=== PATIENT | male | born 1975 | race Caucasian/White ===

== ENCOUNTER 2017-06-13 19:32 | Emergency (ER) | payer MEDICARE, OTHER ==
[2017-06-13] MEDS ORDERED: Sodium Chloride 0.9% 1,000 ML IV ONE (19:41)
[2017-06-13] MEDS ORDERED: Sodium Chloride 0.9% 10 ML Syringe FLUSH PRN (19:41)
[2017-06-13] MEDS ORDERED: Ondansetron 4 MG/2 ML SDV IVPUSH ONE (19:41)
[2017-06-13] MEDS ORDERED: Sodium Chloride 0.9% 2.5 ML Syringe FLUSH PRN (19:41)
--- NOTE | 2017-06-13 19:43 | EDM.PDOC ---
ED HPI GENERAL MEDICAL PROBLEM - General Chief Complaint: Fever Stated Complaint: FEVER Time Seen by Provider: 06/13/17 19:37 - History of Present Illness INITIAL COMMENTS - FREE TEXT/NARRATIVE: HISTORY AND PHYSICAL: History of present illness: Patient 41-year-old white male history diabetes who presents with concern of vomiting and fever states he had a temperature of 102 at home and vomited 3 times a night he denies abdominal pain chest pain cough or other concern. Upon arrival is temperature is 90.9 he states he did take Tylenol at 6:00 Review of systems: As per history of present illness and below otherwise all systems reviewed and negative. Past medical history: As per history of present illness and as reviewed below otherwise noncontributory. Surgical history: As per history of present illness and as reviewed below otherwise noncontributory. Social history: No reported history of drug or alcohol abuse. Family history: As per history of present illness and as reviewed below otherwise noncontributory. Physical exam: HEENT: Atraumatic, normocephalic, pupils reactive, negative for conjunctival pallor or scleral icterus, mucous membranes moist, throat clear, neck supple, nontender, trachea midline. Lungs: Clear to auscultation, breath sounds equal bilaterally, chest nontender. Heart: S1S2, regular, negative for clicks, rubs, or JVD. Abdomen: Soft, nondistended, nontender. Negative for masses or hepatosplenomegaly. Negative for costovertebral tenderness. Pelvis: Stable nontender. Genitourinary: Deferred. Rectal: Deferred. Extremities: Atraumatic, negative for cords or calf pain. Neurovascular unremarkable. Neuro: Awake, alert, oriented. Cranial nerves II through XII unremarkable. Cerebellum unremarkable. Motor and sensory unremarkable throughout. Exam nonfocal. Diagnostics: CBC CMP chest x-ray UA Therapeutics: Normal saline 1 L bolus Zofran 4 mg IV Impression: #1 history of fever #2 vomiting #3 history diabetes Definitive disposition and diagnosis as appropriate pending reevaluation and review of above. - Related Data Allergies Allergy/AdvReac Type Severity Reaction Status Date / Time codeine AdvReac Nose Bleeds Verified 06/13/17 19:37 Home Meds: Home Meds Aspirin [Adult Low Dose Aspirin EC] 81 mg PO QID 03/26/14 [History] Budesonide/Formoterol [Symbicort 160-4.5 Mcg Inhaler] 1 puff INH BID 03/26/14 [ History] Lansoprazole [Prevacid] 15 mg PO DAILY 03/26/14 [History] carBAMazepine [Tegretol XR] 200 mg PO BID 03/26/14 [History] Past Medical History Neurological History: Reports: Seizure Social & Family History - Tobacco Use Smoking Status *Q: Never Smoker - Recreational Drug Use Recreational Drug Use: No ED ROS GENERAL - Review of Systems Review Of Systems: ROS reveals no pertinent complaints other than HPI. ED EXAM, GENERAL - Physical Exam Exam: See Below Course - Vital Signs Last Recorded V/S: Last Vital Signs Temp 38.2 C H 06/13/17 21:50 Pulse 106 H 06/13/17 21:50 Resp 22 H 06/13/17 21:50 BP 112/60 06/13/17 21:50 Pulse Ox 90 L 06/13/17 21:50 - Orders/Labs/Meds Orders: Active Orders 24 hr Category Date Time Status Chest 2V [CR] Stat Exams 06/13/17 19:41 Taken Sodium Chloride 0.9% [Saline Flush] Med 06/13/17 19:41 Active 10 ml FLUSH ASDIRECTED PRN Sodium Chloride 0.9% [Saline Flush] Med 06/13/17 19:41 Active 2.5 ml FLUSH ASDIRECTED PRN Saline Lock Insert [OM.PC] Stat Oth 06/13/17 19:40 Ordered Medication Orders Sodium Chloride (Saline Flush) 10 ml FLUSH ASDIRECTED PRN PRN Reason: Keep Vein Open Last Admin: 06/13/17 20:02 Dose: 10 ml Sodium Chloride (Saline Flush) 2.5 ml FLUSH ASDIRECTED PRN PRN Reason: Keep Vein Open Last Admin: 06/13/17 20:02 Dose: 2.5 ml Labs: Laboratory Tests 06/13/17 06/13/17 06/13/17 Range/Units 19:56 19:56 21:05 WBC 10.05 (4.0-11.0) K/uL RBC 4.24 L (4.50-5.90) M/uL Hgb 13.4 (13.0-17.0) g/dL Hct 41.9 (38.0-50.0) % MCV 98.8 H (80.0-98.0) fL MCH 31.6 (27.0-32.0) pg MCHC 32.0 (31.0-37.0) g/dL RDW Std Deviation 49.7 (28.0-62.0) fl RDW Coeff of Janina 14 (11.0-15.0) % Plt Count 149 L (150-400) K/uL MPV 10.60 (7.40-12.00) fL Neut % (Auto) 81.7 H (48.0-80.0) % Lymph % (Auto) 9.2 L (16.0-40.0) % [place] % (Auto) 9.0 (0.0-15.0) % Eos % (Auto) 0.0 (0.0-7.0) % Baso % (Auto) 0.1 (0.0-1.5) % Neut # (Auto) 8.2 H (1.4-5.7) K/uL Lymph # (Auto) 0.9 (0.6-2.4) K/uL [place] # (Auto) 0.9 H (0.0-0.8) K/uL Eos # (Auto) 0.0 (0.0-0.7) K/uL Baso # (Auto) 0.0 (0.0-0.1) K/uL Nucleated RBC % 0.0 /100WBC Nucleated RBCs # 0 K/uL Sodium 139 (136-146) mmol/L Potassium 4.4 (3.5-5.1) mmol/L Chloride 104 (98-110) mmol/L Carbon Dioxide 24 (21-31) mmol/L BUN 13 (6.0-23.0) mg/dL Creatinine 1.2 (0.6-1.5) mg/dL Est Cr Clr Drug Dosing 97.45 mL/min Estimated GFR (MDRD) > 60.0 ml/min Glucose 151 H (60-110) mg/dL Calcium 9.0 (8.8-10.8) mg/dL Total Bilirubin 0.8 (0.1-1.5) mg/dL AST 23 (5-40) IU/L ALT 18 (8-54) IU/L Alkaline Phosphatase 89 (40-150) Total Protein 7.7 (6.0-8.0) g/dL Albumin 3.9 (3.5-5.0) g/dL Globulin 3.8 H (2.0-3.5) g/dL Albumin/Globulin Ratio 1.0 L (1.3-2.8) Urine Color YELLOW Urine Appearance CLEAR Urine pH 7.5 (5.0-8.0) Ur Specific [place] 1.015 (1.001-1.035) Urine Protein 30 (NEGATIVE) mg/dL Urine Glucose (UA) NEGATIVE (NEGATIVE) mg/dL Urine Ketones TRACE H (NEGATIVE) mg/dL Urine Occult Blood NEGATIVE (NEGATIVE) Urine Nitrite NEGATIVE (NEGATIVE) Urine Bilirubin SMALL H (NEGATIVE) Urine Ictotest NEGATIVE Urine Urobilinogen 1.0 (<2.0) EU/dL Ur Leukocyte Esterase NEGATIVE (NEGATIVE) Urine RBC 0-1 (0-2/HPF) Urine WBC 3-5 (0-5/HPF) Ur Epithelial Cells MODERATE (NONE-FEW) Urine Bacteria FEW (NEGATIVE) Meds: Medications Generic Name Dose Route Start Last Admin Trade Name Yari PRN Reason Stop Dose Admin Sodium Chloride 10 ml 06/13/17 19:41 06/13/17 20:02 Saline Flush FLUSH 10 ml ASDIRECTED PRN Administration Keep Vein Open Sodium Chloride 2.5 ml 06/13/17 19:41 06/13/17 20:02 Saline Flush FLUSH 2.5 ml ASDIRECTED PRN Administration Keep Vein Open Discontinued Medications Generic Name Dose Route Start Last Admin Trade Name Yari PRN Reason Stop Dose Admin Sodium Chloride 1,000 mls @ 999 mls/hr 06/13/17 19:41 06/13/17 20:01 Normal Saline IV 06/13/17 20:41 999 mls/hr STAT ONE Administration Ondansetron HCl 4 mg 06/13/17 19:41 06/13/17 20:01 Zofran IVPUSH 06/13/17 19:42 4 mg ONETIME ONE Administration Departure - Departure Time of Disposition: 21:56 Disposition: Home, Self-Care 01 Condition: Good Clinical Impression: Viral syndrome - Discharge Information Forms: ED Department Discharge Additional Instructions: The following information is given to patients seen in the emergency department who are being discharged to home. This information is to outline your options for follow-up care. We provide all patients seen in our emergency department with a follow-up referral. The need for follow-up, as well as the timing and circumstances, are variable depending upon the specifics of your emergency department visit. If you don't have a primary care physician on staff, we will provide you with a referral. We always advise you to contact your personal physician following an emergency department visit to inform them of the circumstance of the visit and for follow-up with them and/or the need for any referrals to a consulting specialist. The emergency department will also refer you to a specialist when appropriate. This referral assures that you have the opportunity for followup care with a specialist. All of these measure are taken in an effort to provide you with optimal care, which includes your followup. Under all circumstances we always encourage you to contact your private physician who remains a resource for coordinating your care. When calling for followup care, please make the office aware that this follow-up is from your recent emergency room visit. If for any reason you are refused follow-up, please contact the [facility] emergency department at and asked to speak to the emergency department charge nurse. Push fluids clear liquids as directed continue current medications return as needed as discussed Motrin/Tylenol as directed - My Orders Last 24 Hours: My Active Orders 06/13/17 19:40 Saline Lock Insert [OM.PC] Stat 06/13/17 19:41 Chest 2V [CR] Stat Sodium Chloride 0.9% [Saline Flush] 10 ml FLUSH ASDIRECTED PRN Sodium Chloride 0.9% [Saline Flush] 2.5 ml FLUSH ASDIRECTED PRN - Assessment/Plan Last 24 Hours: My Active Orders 06/13/17 19:40 Saline Lock Insert [OM.PC] Stat 06/13/17 19:41 Chest 2V [CR] Stat Sodium Chloride 0.9% [Saline Flush] 10 ml FLUSH ASDIRECTED PRN Sodium Chloride 0.9% [Saline Flush] 2.5 ml FLUSH ASDIRECTED PRN
[2017-06-13 20:43] LABS: CHLORIDE,CL 104 mmol/L (98-110); SODIUM,NA 139 mmol/L (136-146)
[2017-06-13] MEDS ORDERED: cefTRIAXone 1,000 MG VIAL IVPUSH ONE (22:03)
[2017-06-13] MEDS ORDERED: cefTRIAXone 1 GM in Premix Bag 1 BAG IV ONE (22:09)
[2017-06-13 22:50] VITALS: BP 104/51
--- NOTE | 2017-06-14 11:51 | CR ---
EXAM DATE: 06/13/17 PATIENT'S AGE: 41 Patient: LIZBETH MAK Facility: [place], [place] Site . Site : [id number] Study: XRay Chest [id number]/18/2017 9:11:55 PM Ordering Physician: Marilyn Mancera Final Report: CHEST 2 VIEWS INDICATION: Short of breath. IMPRESSION: Normal heart size and vascular pattern. Lungs are clear. No pneumothorax or pleural abnormality. Dictated by Pieter Walsh MD @ Jun 13 2017 9:35PM (Electronic Signature) Report Signed by Proxy. [facility] CENTERBatsheva
== END 2017-06-13 22:50 | disposition home or self-care (01) ==
LOC: MW.ED 19:32
DX: B34.9 Viral infection, unspecified (principal); E11.9 Type 2 diabetes mellitus without complications; Z88.5 Allergy status to narcotic agent; Z79.82 Long term (current) use of aspirin; Z79.899 Other long term (current) drug therapy
CPT/HCPCS: 36415; 71020; 80053; 81001; 85025; 96361; 96365; 96375; 99284; J0696; J2405; J7040

== ENCOUNTER 2017-08-09 07:51 | Day surgery (SDC) | payer MEDICARE, OTHER ==
[~2017-08-09 07:51] MED LIST: Lactated Ringers 1,000 ML IV SCH
--- NOTE | 2017-08-09 08:48 | PCM.PREANE ---
Preanesthetic Assessment - Anesthesia/Transfusion/Family Hx Anesthesia History: No Prior Anesthesia Family History of Anesthesia Reaction: No Transfusion History: No Prior Transfusion(s) - Review of Systems General: No Symptoms Pulmonary: No Symptoms Cardiovascular: No Symptoms Neurological: No Symptoms Other: Reports: None - Physical Assessment NPO Status Date: 08/08/17 O2 Sat by Pulse Oximetry: 97 Respiratory Rate: 16 Vital Signs: Last Vital Signs Temp 36.2 C 08/09/17 08:13 Pulse 71 08/09/17 08:13 Resp 16 08/09/17 08:13 BP 116/70 08/09/17 08:13 Pulse Ox 97 08/09/17 08:13 Height: 1.8 m Weight: 174.633 kg ASA Class: 3 Mental Status: Alert & Oriented x3 Airway Class: Mallampati = 2 Dentition: Reports: Normal Dentition ROM/Head Extension: Full Lungs: Clear to Auscultation, Normal Respiratory Effort Cardiovascular: Regular Rate, Regular Rhythm - Allergies Allergies/Adverse Reactions: Allergies Allergy/AdvReac Type Severity Reaction Status Date / Time codeine AdvReac Nose Bleeds Verified 08/03/17 15:41 - Anesthesia Plan Pre-Op Medication Ordered: None - Acknowledgements Anesthesia Type Planned: MAC Pt an Appropriate Candidate for the Planned Anesthesia: Yes Alternatives and Risks of Anesthesia Discussed w Pt/Guardian: Yes Pt/Guardian Understands and Agrees with Anesthesia Plan: Yes Additional Comments: PMH: super morbid oesity, DM2, HTN, HLD, seizure disorder (last seizure > 2 yr ago) PreAnesthesia Questionnaire Other HEENT History: has upper and lower dentures Cardiovascular History: Reports: High Cholesterol, Hypertension Respiratory History: Reports: Asthma Gastrointestinal History: Reports: GERD Neurological History: Reports: Brain Injury, Concussion, Seizure Other Neuro History: las seizure was "many years ago" Endocrine/Metabolic History: Reports: Diabetes, Type II, Obesity/BMI 30+ Dermatologic History: Reports: Other (See Below) Other Dermatologic History: states has had "blood clots" in his legs, did not take anticoagulants (uses cream) - Infectious Disease History Infectious Disease History: Reports: Chicken Pox - SUBSTANCE USE Smoking Status *Q: Never Smoker Second Hand Smoke Exposure: No Recreational Drug Use History: No - HOME MEDS Home Medications: Home Meds Budesonide/Formoterol [Symbicort 160-4.5 Mcg Inhaler] 1 puff INH BID 03/26/14 [ History] carBAMazepine [Tegretol XR] 200 mg PO BID 03/26/14 [History] Lisinopril 10 mg PO DAILY 06/13/17 [History] atorvaSTATin [Lipitor] 10 mg PO BEDTIME 06/13/17 [History] metFORMIN [Glucophage XR] 500 mg PO BIDMEALS 06/13/17 [History] Silver Sulfadiazine [Silvadene 1% Cream 20 GM] 1 dose TOP ASDIRECTED PRN [History] - CURRENT (IN HOUSE) MEDS Current Meds: Current Medications Lactated Ringer's (Ringers, Lactated) 1,000 mls @ 125 mls/hr IV ASDIRECTED SANDY Last Admin: 08/09/17 08:15 Dose: 125 mls/hr
[2017-08-09] MEDS ORDERED: Lidocaine 2% 5 ML SDV ONE (09:33)
[2017-08-09] MEDS ORDERED: Propofol 200 MG/20 ML SDV ONE ×2 (09:34→10:15)
[2017-08-09] MEDS ORDERED: Midazolam 1 MG/ML 2 ML SDV ONE ×2 (09:34→10:05)
--- NOTE | 2017-08-09 10:00 | PCM.OPNOTE ---
- General Post-Op/Procedure Note Date of Surgery/Procedure: 08/09/17 Operative Procedure(s): egd w bx Findings: see dict [id number] Pre Op Diagnosis: hx of hematemisis Anesthesia Technique: Moderate Sedation Primary Surgeon: Alonso Figueroa Pathology: egd bx Complications: None Condition: Good
[2017-08-09] MEDS ORDERED: fentaNYL 100 MCG/2 ML SDV ONE (10:05)
[2017-08-09 10:35] VITALS: BP 109/63
--- NOTE | 2017-08-09 10:51 | PCM48HPAN ---
Post Anesthesia Note - EVALUATION WITHIN 48HRS OF ANESTHETIC Vital Signs in Normal Range: Yes Patient Participated in Evaluation: Yes Respiratory Function Stable: Yes Airway Patent: Yes Cardiovascular Function Stable: Yes Hydration Status Stable: Yes Pain Control Satisfactory: Yes Nausea and Vomiting Control Satisfactory: Yes Mental Status Recovered: Yes
--- NOTE | 2017-08-09 10:51 | PCM.POSTAN ---
POST ANESTHESIA ASSESSMENT - MENTAL STATUS Mental Status: Alert, Oriented - RESPIRATORY Respiratory Status: Respiratory Rate WNL, Airway Patent, O2 Saturation Stable - CARDIOVASCULAR CV Status: Pulse Rate WNL, Blood Pressure Stable - GASTROINTESTINAL GI Status: No Symptoms - POST OP HYDRATION Hydration Status: Adequate & Stable
--- NOTE | 2017-08-09 14:07 | OR ---
SURGEON: Alonso Figueroa MD DATE OF PROCEDURE: 08/09/2017 PREOPERATIVE DIAGNOSIS: History of hematemesis. POSTOPERATIVE DIAGNOSIS: Gastritis. PROCEDURE PERFORMED: EGD with biopsy. DESCRIPTION OF PROCEDURE: EGD: The patient was taken to the endoscopy room, and with the GEMOLOGIST, Diprivan was administered. A well-lubricated EGD scope was gently inserted through the oropharynx, down the esophagus, passing through the gastroesophageal junction, into the stomach. The mucosa was examined upon the passage. Any etiology will be noted. Once in the stomach, we continued to advance to the distal antrum, passed through the pylorus into the second portion of the duodenum. Again, the mucosa was examined for any abnormality and etiology. The scope was then retrieved back to the stomach and then retroflexed to look at the fundus of the stomach. If a biopsy was indicated, we will biopsy the antrum, body, and gastroesophageal junction. The air will be sucked out while the scope is retrieved to reduce the patient's discomfort. The patient tolerated the procedure well. There were no intraoperative complications. Dr. Figueroa was present through the whole procedure. Prior to surgery, a time-out had been called, the patient identified, procedure identified and antibiotic administered. FINDINGS: 1. The patient is easily sedated with GEMOLOGIST and Diprivan. The patient is soundly snoring. 2. Proximal esophagus and oropharynx, free of disease and normal in appearance. No inflammation, no blood, no ulcer, and GE junction at 40, shows mild color change, salmon color change, consistent with mild acid reflux. Stomach rugae is normal in appearance and antrum is quite inflamed. Again, there is no ulcer, blood, food, or bile observed. Duodenum is grossly normal in appearance, but is white consistent with probably have some food after midnight. Scope retrieved back to the stomach. Retroflexed look at the fundus of stomach, no hiatal hernia. Biopsy done at antrum, body, and GE junction at 40, does have one area in the antrum quite hyperemic. Suck out the air while scope pulling out. DELANEY NIELSEN /[id number] FIFI
== END 2017-08-09 11:30 | disposition home or self-care (01) ==
LOC: MW.SDS 07:51
PROVIDERS: ATTEND Surgery
DX: K29.50 Unspecified chronic gastritis without bleeding (principal); Z88.8 Allergy status to other drugs, medicaments and biological substances; Z79.84 Long term (current) use of oral hypoglycemic drugs; Z79.899 Other long term (current) drug therapy; E66.01 Morbid (severe) obesity due to excess calories; Z68.43 Body mass index [BMI] 50.0-59.9, adult
CPT/HCPCS: 43239; J2250; J7120; 00740; 88305; 88312; J2704; J3010

== ENCOUNTER 2017-10-07 09:33 | Emergency (ER) | payer MEDICARE ==
[2017-10-07] MEDS ORDERED: Ketorolac 30 MG/ML SDV IVPUSH ONE (10:56)
[2017-10-07] MEDS ORDERED: Ondansetron 4 MG/2 ML SDV IVPUSH ONE (10:56)
[2017-10-07] MEDS ORDERED: Sodium Chloride 0.9% 1,000 ML IV ONE (10:56)
--- NOTE | 2017-10-07 10:57 | EDM.PDOC ---
ED HPI GENERAL MEDICAL PROBLEM - General Chief Complaint: Gastrointestinal Problem Stated Complaint: VOMITTING Time Seen by Provider: 10/07/17 10:52 Source of Information: Reports: Patient, Family History Limitations: Reports: No Limitations - History of Present Illness INITIAL COMMENTS - FREE TEXT/NARRATIVE: HISTORY AND PHYSICAL: History of present illness: [Patient is brought to the emergency room by his father with complaints of nausea and vomiting. He lives w/ his parents, and father is his main anatomic pathologist. Symptoms of vomiting and fatigue began this morning and he has vomited 3 times. Admits to experiencing nausea and queasiness in his stomach, but denies abdominal pain constipation and diarrhea. He has not checked his temperature today. No sore throat runny nose or earaches. He developed some cold sores on his lips several days ago. No cough or chest congestion. Denies chest pain shortness of breath and difficulty breathing. Denies body, muscle and joint aches or pains. Dad reports that he was recently diagnosed with parasites in his stomach following a scope by Dr. Figueroa. He is overdue for follow-up there. Dr. William Cano is his PCP.] Review of systems: As per history of present illness and below otherwise all systems reviewed and negative. Past medical history: As per history of present illness and as reviewed below otherwise noncontributory. Surgical history: As per history of present illness and as reviewed below otherwise noncontributory. Social history: No reported history of drug or alcohol abuse. Family history: As per history of present illness and as reviewed below otherwise noncontributory. Physical exam: Gen.: Well-developed, well-nourished male in no acute distress. Appears to be intellectually delayed as dad answers most questions and provides most of past medical history. HEENT: Atraumatic, normocephalic. Cold sores present to the left side of mouth upper and lower lips are involved. Oral mucous membranes are pink and mildly dry. Neck is supple no lymphadenopathy. Lungs: Clear to auscultation, breath sounds equal bilaterally. No wheezing crackles or rales. Heart: S1S2, regular rate and rhythm. Abdomen: Obese. Abdomen is soft, nondistended, nontender. Negative for masses, guarding or rebound. No costovertebral tenderness. Pelvis: Stable nontender. Genitourinary: Deferred. Rectal: Deferred. Extremities: Atraumatic, mild rubor to bilat LE. No cyanosis or edema. Neurovascular unremarkable. Neuro: Awake, alert, oriented. Motor and sensory unremarkable throughout. Exam nonfocal. Diagnostics: [CBC, CMP, UA] Therapeutics: [1 liter NS, 4mg Zofran IV, Tylenol 1000mg po, Toradol 30mg IV] Impression: [Viral syndrome] Plan: [Discussed with patient and father that his symptoms are viral in nature. Recommend pushing fluids, get plenty of rest, Tylenol and ibuprofen as needed for fever or discomfort. Strict return precautions are reviewed with the patient. He is urged to follow-up with Dr. Cano and Dr. Givens. Patient and daughter are in agreement with today's discussion. All questions are answered and concerns are addressed.] Definitive disposition and diagnosis as appropriate pending reevaluation and review of above. Abdominal Pain Score (Numeric/FACES): 0 - Related Data Allergies Allergy/AdvReac Type Severity Reaction Status Date / Time codeine AdvReac Nose Bleeds Verified 08/03/17 15:41 Home Meds: Home Meds Budesonide/Formoterol [Symbicort 160-4.5 MCG] 1 puff INH BID 03/26/14 [History] carBAMazepine [Tegretol XR] 200 mg PO BID 03/26/14 [History] Lisinopril 10 mg PO DAILY 06/13/17 [History] atorvaSTATin [Lipitor] 10 mg PO BEDTIME 06/13/17 [History] metFORMIN [Glucophage XR] 500 mg PO BIDMEALS 06/13/17 [History] Silver Sulfadiazine [Silvadene 1% Cream 20 GM] 1 dose TOP ASDIRECTED PRN [History] Past Medical History Other HEENT History: has upper and lower dentures Cardiovascular History: Reports: High Cholesterol, Hypertension Respiratory History: Reports: Asthma Gastrointestinal History: Reports: GERD, Helicobacter Pylori Neurological History: Reports: Brain Injury, Concussion, Seizure Other Neuro History: las seizure was "many years ago" Endocrine/Metabolic History: Reports: Diabetes, Type II, Obesity/BMI 30+ Dermatologic History: Reports: Other (See Below) Other Dermatologic History: states has had "blood clots" in his legs, did not take anticoagulants (uses cream) - Infectious Disease History Infectious Disease History: Reports: Chicken Pox - Past Surgical History GI Surgical History: Reports: EGD Social & Family History - Family History Family Medical History: Noncontributory Cardiac: Reports: Hypertension Respiratory: Reports: Asthma Neurological: Reports: Other (See Below) Other Neurological Family History: stroke Endocrine/Metabolic: Reports: Diabetes, type II - Tobacco Use Smoking Status *Q: Never Smoker Second Hand Smoke Exposure: No - Caffeine Use Caffeine Use: Reports: Soda - Recreational Drug Use Recreational Drug Use: No Drug Use in Last 12 Months: No ED ROS GENERAL - Review of Systems Review Of Systems: ROS reveals no pertinent complaints other than HPI. ED EXAM, GI/ABD - Physical Exam Exam: See Below Course - Vital Signs Last Recorded V/S: Last Vital Signs Temp 99.3 F 10/07/17 12:26 Pulse 86 10/07/17 12:21 Resp 16 10/07/17 12:21 BP 115/44 L 10/07/17 12:21 Pulse Ox 92 L 10/07/17 12:21 - Orders/Labs/Meds Orders: Active Orders 24 hr Category Date Time Status UA W/MICROSCOPIC [URIN] Stat Lab 10/07/17 10:56 Uncollected Labs: Laboratory Tests 10/07/17 10/07/17 10/07/17 Range/Units 11:16 11:16 11:16 WBC 10.56 (4.0-11.0) K/uL RBC 4.44 L (4.50-5.90) M/uL Hgb 13.9 (13.0-17.0) g/dL Hct 42.7 (38.0-50.0) % MCV 96.2 (80.0-98.0) fL MCH 31.3 (27.0-32.0) pg MCHC 32.6 (31.0-37.0) g/dL RDW Std Deviation 46.4 (28.0-62.0) fl RDW Coeff of Janina 13 (11.0-15.0) % Plt Count 140 L (150-400) K/uL MPV 10.50 (7.40-12.00) fL Neut % (Auto) 82.5 H (48.0-80.0) % Lymph % (Auto) 7.8 L (16.0-40.0) % [place] % (Auto) 9.6 (0.0-15.0) % Eos % (Auto) 0.0 (0.0-7.0) % Baso % (Auto) 0.1 (0.0-1.5) % Neut # (Auto) 8.7 H (1.4-5.7) K/uL Lymph # (Auto) 0.8 (0.6-2.4) K/uL [place] # (Auto) 1.0 H (0.0-0.8) K/uL Eos # (Auto) 0.0 (0.0-0.7) K/uL Baso # (Auto) 0.0 (0.0-0.1) K/uL Nucleated RBC % 0.0 /100WBC Nucleated RBCs # 0 K/uL Lactate 1.6 (0.20-2.00) mmol/L Sodium 140 (136-146) mmol/L Potassium 4.3 (3.5-5.1) mmol/L Chloride 106 (98-110) mmol/L Carbon Dioxide 26 (21-31) mmol/L BUN 13 (6.0-23.0) mg/dL Creatinine 1.1 (0.6-1.5) mg/dL Est Cr Clr Drug Dosing 111.94 mL/min Estimated GFR (MDRD) > 60.0 ml/min Glucose 155 H (60-110) mg/dL Calcium 8.5 L (8.8-10.8) mg/dL Total Bilirubin 0.6 (0.1-1.5) mg/dL AST 17 (5-40) IU/L ALT 16 (8-54) IU/L Alkaline Phosphatase 75 (40-150) Total Protein 7.0 (6.0-8.0) g/dL Albumin 3.6 (3.5-5.0) g/dL Globulin 3.4 (2.0-3.5) g/dL Albumin/Globulin Ratio 1.1 L (1.3-2.8) Amylase 22 (10-90) U/L Lipase 22 (7-80) U/L Meds: Medications Discontinued Medications Generic Name Dose Route Start Last Admin Trade Name Freq PRN Reason Stop Dose Admin Acetaminophen 1,000 mg 10/07/17 11:45 10/07/17 12:26 Tylenol Extra Strength PO 10/07/17 11:46 1,000 mg ONETIME ONE Administration Sodium Chloride 1,000 mls @ 999 mls/hr 10/07/17 10:56 10/07/17 11:23 Normal Saline IV 10/07/17 11:56 999 mls/hr .Bolus ONE Administration Ketorolac Tromethamine 30 mg 10/07/17 10:56 10/07/17 11:34 Toradol IVPUSH 10/07/17 10:57 30 mg ONETIME ONE Administration Ondansetron HCl 4 mg 10/07/17 10:56 10/07/17 11:32 Zofran IVPUSH 10/07/17 10:57 4 mg ONETIME ONE Administration Departure - Departure Time of Disposition: 12:25 Disposition: Home, Self-Care 01 Condition: Good Clinical Impression: Viral syndrome - Discharge Information Instructions: Viral Respiratory Infection, [id number] Referrals: William Cano MD [Primary Care Provider] - Forms: ED Department Discharge Additional Instructions: The following information is given to patients seen in the emergency department who are being discharged to home. This information is to outline your options for follow-up care. We provide all patients seen in our emergency department with a follow-up referral. The need for follow-up, as well as the timing and circumstances, are variable depending upon the specifics of your emergency department visit. If you don't have a primary care physician on staff, we will provide you with a referral. We always advise you to contact your personal physician following an emergency department visit to inform them of the circumstance of the visit and for follow-up with them and/or the need for any referrals to a consulting specialist. The emergency department will also refer you to a specialist when appropriate. This referral assures that you have the opportunity for follow-up care with a specialist. All of these measure are taken in an effort to provide you with optimal care, which includes your follow-up. Under all circumstances we always encourage you to contact your private physician who remains a resource for coordinating your care. When calling for follow-up care, please make the office aware that this follow-up is from your recent emergency room visit. If for any reason you are refused follow-up, please contact the [facility] emergency department at and asked to speak to the emergency department charge nurse. [address] [place] [address] You are suffering from a viral illness. You may feel ill for a couple of days. Recommend that you push fluids, and get plenty of rest. Recommend Tylenol alternating with ibuprofen for fever or discomfort. You may take either medication every 4 hours. Stay away from dairy products, greasy and fatty foods until you are feeling improved. Follow-up with Dr. Cano in 48-72 hours. Return to ER as needed as discussed. - My Orders Last 24 Hours: My Active Orders 10/07/17 10:56 UA W/MICROSCOPIC [URIN] Stat - Assessment/Plan Last 24 Hours: My Active Orders 10/07/17 10:56 UA W/MICROSCOPIC [URIN] Stat
[2017-10-07] MEDS ORDERED: Acetaminophen 500 MG Tab PO ONE (11:45)
[2017-10-07 11:54] LABS: CHLORIDE,CL 106 mmol/L (98-110); SODIUM,NA 140 mmol/L (136-146)
[2017-10-07] MEDS ORDERED: Albuterol/Ipratropium 3.0-0.5 MG/3 ML Neb Soln NEB ONE (12:43)
[2017-10-07 14:58] VITALS: BP 112/47
== END 2017-10-07 13:38 | disposition home or self-care (01) ==
LOC: MW.ED 09:33
DX: B34.9 Viral infection, unspecified (principal); I10 Essential (primary) hypertension; E78.00 Pure hypercholesterolemia, unspecified; J45.909 Unspecified asthma, uncomplicated; E11.9 Type 2 diabetes mellitus without complications; Z79.899 Other long term (current) drug therapy; Z79.84 Long term (current) use of oral hypoglycemic drugs; Z88.5 Allergy status to narcotic agent
CPT/HCPCS: 36415; 80053; 82150; 83605; 83690; 85025; 94640; 96361; 96374; 96375; 99284; A9270; J1885; J2405; J7040

== ENCOUNTER 2018-05-05 09:03 | Day surgery (SDC) | payer MEDICARE ==
[~2018-05-05 09:03] MED LIST changes: +Lidocaine 2% 5 ML SDV ONE; +Midazolam 1 MG/ML 2 ML SDV ONE; +Propofol 200 MG/20 ML SDV ONE
--- NOTE | 2018-05-05 09:30 | PCM.PREANE ---
Preanesthetic Assessment - Anesthesia/Transfusion/Family Hx Anesthesia History: Prior Anesthesia Without Reaction Family History of Anesthesia Reaction: No Transfusion History: No Prior Transfusion(s) - Review of Systems General: No Symptoms Cardiovascular: No Symptoms Neurological: No Symptoms Other: Reports: None - Physical Assessment NPO Status Date: 05/04/18 O2 Sat by Pulse Oximetry: 93 Respiratory Rate: 18 Vital Signs: Last Vital Signs Temp 36.4 C 05/05/18 09:24 Pulse 56 L 05/05/18 09:24 Resp 18 05/05/18 09:24 BP 127/77 05/05/18 09:24 Pulse Ox 93 L 05/05/18 09:24 Height: 1.98 m Weight: 171.912 kg ASA Class: 3 Mental Status: Alert & Oriented x3 Airway Class: Mallampati = 1 Dentition: Reports: Edentulous ROM/Head Extension: Full Lungs: Clear to Auscultation, Normal Respiratory Effort Cardiovascular: Regular Rate, Regular Rhythm - Allergies Allergies/Adverse Reactions: Allergies Allergy/AdvReac Type Severity Reaction Status Date / Time codeine AdvReac Nose Bleeds Verified 05/02/18 08:37 - Blood Blood Available: No - Anesthesia Plan Pre-Op Medication Ordered: None - Acknowledgements Anesthesia Type Planned: MAC Pt an Appropriate Candidate for the Planned Anesthesia: Yes Alternatives and Risks of Anesthesia Discussed w Pt/Guardian: Yes Pt/Guardian Understands and Agrees with Anesthesia Plan: Yes Additional Comments: PMH: hx of seizure disorder, no seizures since 1984, is on tegretal, DM2, HLD, morbid obesity. PreAnesthesia Questionnaire HEENT History: Reports: Other (See Below) Other HEENT History: has upper and lower dentures Cardiovascular History: Reports: High Cholesterol, Hypertension Respiratory History: Reports: Asthma Gastrointestinal History: Reports: GERD, Helicobacter Pylori Genitourinary History: Reports: None Neurological History: Reports: Brain Injury, Concussion, Seizure Other Neuro History: seizure was "many years ago" Endocrine/Metabolic History: Reports: Diabetes, Type II, Obesity/BMI 30+ Dermatologic History: Reports: Other (See Below) Other Dermatologic History: poor circulation in his legs, (uses cream) - Infectious Disease History Infectious Disease History: Reports: Chicken Pox - Past Surgical History Head Surgeries/Procedures: Reports: None GI Surgical History: Reports: EGD - SUBSTANCE USE Smoking Status *Q: Never Smoker Recreational Drug Use History: No - HOME MEDS Home Medications: Home Meds Budesonide/Formoterol [Symbicort 160-4.5 MCG] 1 puff INH BID 03/26/14 [History] carBAMazepine [Tegretol XR] 200 mg PO BID 03/26/14 [History] Lisinopril 10 mg PO DAILY 06/13/17 [History] atorvaSTATin [Lipitor] 5 mg PO BEDTIME 06/13/17 [History] metFORMIN [Glucophage XR] 500 mg PO BIDMEALS 06/13/17 [History] Silver Sulfadiazine [Silvadene 1% Cream 20 GM] 1 dose TOP ASDIRECTED PRN [History] Lansoprazole [Prevacid] 15 mg PO DAILY 05/02/18 [History] - CURRENT (IN HOUSE) MEDS Current Meds: Current Medications Lactated Ringer's (Ringers, Lactated) 1,000 mls @ 125 mls/hr IV ASDIRECTED SANDY Discontinued Medications Lidocaine (Xylocaine-Mpf 2%) Confirm Administered Dose 5 ml .ROUTE .STK-MED ONE Stop: 05/05/18 07:12 Midazolam HCl (Versed 1 Mg/Ml) Confirm Administered Dose 2 mg .ROUTE .STK-MED ONE Stop: 05/05/18 07:12 Propofol (Diprivan 20 Ml) Confirm Administered Dose 200 mg .ROUTE .STK-MED ONE Stop: 05/05/18 07:11
[2018-05-05] MEDS ORDERED: Propofol 200 MG/20 ML SDV ONE (09:38)
[2018-05-05] MEDS ORDERED: Benzocaine 20% Topical Spray UD MUCMEM ONE (09:39)
--- NOTE | 2018-05-05 11:37 | PCM.OPNOTE ---
- General Post-Op/Procedure Note Date of Surgery/Procedure: 05/05/18 Operative Procedure(s): egd w bx Findings: see dict [id number] Pre Op Diagnosis: bloating Post-Op Diagnosis: Same Anesthesia Technique: Moderate Sedation Primary Surgeon: Alonso Figueroa Pathology: egd bx Complications: None Condition: Good
[2018-05-05 12:05] VITALS: BP 128/72
--- NOTE | 2018-05-05 12:19 | PCM48HPAN ---
Post Anesthesia Note - EVALUATION WITHIN 48HRS OF ANESTHETIC Vital Signs in Normal Range: Yes Patient Participated in Evaluation: Yes Respiratory Function Stable: Yes Airway Patent: Yes Cardiovascular Function Stable: Yes Hydration Status Stable: Yes Pain Control Satisfactory: Yes Nausea and Vomiting Control Satisfactory: Yes Mental Status Recovered: Yes Resp Rate: 12
--- NOTE | 2018-05-05 13:38 | OR ---
SURGEON: Alonso Figueroa MD DATE OF PROCEDURE: 05/05/2018 PREOPERATIVE DIAGNOSIS: Bloating. PROCEDURE PERFORMED: Esophagogastroduodenoscopy with biopsy. PROCEDURE IN DETAIL: EGD: The patient was taken to the endoscopy room, and with the SENIOR PROJECT MANAGER, Diprivan was administered. A well-lubricated EGD scope was gently inserted through the oropharynx, down the esophagus, passing through the gastroesophageal junction, into the stomach. The mucosa was examined upon the passage. Any etiology will be noted. Once in the stomach, we continued to advance to the distal antrum, passed through the pylorus into the second portion of the duodenum. Again, the mucosa was examined for any abnormality and etiology. The scope was then retrieved back to the stomach and then retroflexed to look at the fundus of the stomach. If a biopsy was indicated, we will biopsy the antrum, body, and gastroesophageal junction. The air will be sucked out while the scope is retrieved to reduce the patient's discomfort. The patient tolerated the procedure well. There were no intraoperative complications. Dr. Figueroa was present through the whole procedure. Prior to surgery, a time-out had been called, the patient identified, procedure identified and antibiotic administered. FINDINGS: 1. The patient is easily sedated with SENIOR PROJECT MANAGER and Diprivan. The patient is soundly snoring. 2. The patient's oropharynx and proximal esophagus are free of disease. No stricture inflammation. Distal esophagus at 40 shows [id number] acid reflux, salmon-color change with flame-like structure consistent with severe acid reflux. Stomach rugae is normal in appearance. No blood, no ulcer, antrum is normal in appearance, and duodenum was grossly normal. Retroflexed look at the fundus of stomach, there is no hiatal hernia. Biopsy done at antrum, body, GE junction, and sucked out the gas while scope pulling out. DELANEY / MORALES /[id number]
== END 2018-05-05 12:24 | disposition home or self-care (01) ==
LOC: MW.SDS 09:03
PROVIDERS: ATTEND Surgery
DX: K29.50 Unspecified chronic gastritis without bleeding (principal); K21.0 Gastro-esophageal reflux disease with esophagitis; I10 Essential (primary) hypertension; E66.9 Obesity, unspecified; Z68.41 Body mass index [BMI] 40.0-44.9, adult; E11.9 Type 2 diabetes mellitus without complications; E78.00 Pure hypercholesterolemia, unspecified; Z79.84 Long term (current) use of oral hypoglycemic drugs; Z79.899 Other long term (current) drug therapy; Z88.5 Allergy status to narcotic agent
CPT/HCPCS: 43239; A9270; J2250; J2704; J7120; 00731; 88304; 88312

== ENCOUNTER 2019-05-28 00:20 | Emergency (ER) | payer MEDICARE ==
[2019-05-28] MEDS ORDERED: Sodium Chloride 0.9% 1,000 ML IV ONE (00:55)
[2019-05-28 02:07] LABS: BLOOD UREA NITROGEN,BUN 19 mg/dL (7.0-18.0); CHLORIDE,CL 104 mmol/L (98-107); GLUCOSE RANDOM 105 mg/dL (74-106); POTASSIUM,K 4.3 mmol/L (3.5-5.1); SODIUM,NA 140 mmol/L (136-148)
--- NOTE | 2019-05-28 02:51 | EDM.PDOC ---
ED HPI GENERAL MEDICAL PROBLEM - General Chief Complaint: Lower Extremity Injury/Pain Stated Complaint: SORES ON BOTH LEGS- POSSIBLE INFECTION Time Seen by Provider: 05/28/19 03:06 Source of Information: Reports: Patient - History of Present Illness INITIAL COMMENTS - FREE TEXT/NARRATIVE: HISTORY AND PHYSICAL: History of present illness: []A shunt presents with his he has history of stasis dermatitis, they're concerned about infection he does have some superficial open lesions on his anterior shins denies any injury or trauma He also has secondary complaint of diarrhea for 2 weeks as no fever nausea vomiting chills sweats no chest pain shortness breath headache dizziness palpitation no urine symptoms Stay in the ER he is unable to provide a stool sample and multiple attempts Review of systems: As per history of present illness and below otherwise all systems reviewed and negative. Past medical history: As per history of present illness and as reviewed below otherwise noncontributory. Surgical history: As per history of present illness and as reviewed below otherwise noncontributory. Social history: No reported history of drug or alcohol abuse. Family history: As per history of present illness and as reviewed below otherwise noncontributory. Physical exam: HEENT: Atraumatic, normocephalic, pupils reactive, negative for conjunctival pallor or scleral icterus, mucous membranes moist, throat clear, neck supple, nontender, trachea midline. Lungs: Clear to auscultation, breath sounds equal bilaterally, chest nontender. Heart: S1S2, regular, negative for clicks, rubs, or JVD. Abdomen: Soft, nondistended, nontender. Negative for masses or hepatosplenomegaly. Negative for costovertebral tenderness. Pelvis: Stable nontender. Genitourinary: Deferred. Rectal: Deferred. Extremities: Atraumatic, negative for cords or calf pain. Neurovascular unremarkable. Neuro: Awake, alert, oriented. Cranial nerves II through XII unremarkable. Cerebellum unremarkable. Motor and sensory unremarkable throughout. Exam nonfocal. Diagnostics: [cBC CMP UA Cultures obtained Workup ordered however ultimately unable to be performed Therapeutics: [Saline Keflex] Impression: [Gastroenteritis -per patient Venous stasis ulcers History of baseline ] Definitive disposition and diagnosis as appropriate pending reevaluation and review of above. bilateral lower leg Pain Score (Numeric/FACES): 10 - Related Data Allergies Allergy/AdvReac Type Severity Reaction Status Date / Time codeine AdvReac Nose Bleeds Verified 05/28/19 00:44 Home Meds: Home Meds Budesonide/Formoterol [Symbicort 160-4.5 MCG] 2 puff INH BID 03/26/14 [History] carBAMazepine [Tegretol XR] 200 mg PO DAILY 03/26/14 [History] Lisinopril 10 mg PO DAILY 06/13/17 [History] atorvaSTATin [Lipitor] 5 mg PO DAILY 06/13/17 [History] metFORMIN [Glucophage XR] 1,000 mg PO BIDMEALS 06/13/17 [History] Lansoprazole [Prevacid] 15 mg PO BID 05/02/18 [History] Aspirin [Halfprin] 81 mg PO DAILY 06/02/18 [History] Iron 1 mg PO DAILY 06/02/18 [History] Albuterol [Ventolin HFA] 2 puff INH Q4H PRN #1 inhaler 06/03/18 [Rx] Past Medical History HEENT History: Reports: Other (See Below) Other HEENT History: has upper and lower dentures, nosebleeds Cardiovascular History: Reports: High Cholesterol, Hypertension Respiratory History: Reports: Asthma Gastrointestinal History: Reports: GERD, Helicobacter Pylori Genitourinary History: Reports: None Musculoskeletal History: Reports: None Neurological History: Reports: Brain Injury, Concussion, Seizure Other Neuro History: last seizure episode 1994 Psychiatric History: Reports: None Endocrine/Metabolic History: Reports: Diabetes, Type II, Obesity/BMI 30+ Hematologic History: Reports: None Immunologic History: Reports: None Dermatologic History: Reports: Other (See Below) Other Dermatologic History: poor circulation in his legs, (uses cream) - Infectious Disease History Infectious Disease History: Reports: Chicken Pox - Past Surgical History Head Surgeries/Procedures: Reports: None HEENT Surgical History: Reports: None Cardiovascular Surgical History: Reports: None Respiratory Surgical History: Reports: None GI Surgical History: Reports: EGD Neurological Surgical History: Reports: None Dermatological Surgical History: Reports: None Social & Family History - Family History Family Medical History: Noncontributory Cardiac: Reports: Hypertension Respiratory: Reports: Asthma Neurological: Reports: Other (See Below) Other Neurological Family History: stroke Endocrine/Metabolic: Reports: Diabetes, type II - Tobacco Use Smoking Status *Q: Never Smoker - Caffeine Use Caffeine Use: Reports: Coffee, Energy Drinks - Recreational Drug Use Recreational Drug Use: No - Living Situation & Occupation Living situation: Reports: Single, with Family Occupation: Employed Review of Systems - Review of Systems Review Of Systems: See Below ED EXAM, GENERAL - Physical Exam Exam: See Below Course - Vital Signs Last Recorded V/S: Last Vital Signs Temp 97 F 05/28/19 00:44 Pulse 77 05/28/19 00:44 Resp 18 05/28/19 00:44 BP 124/72 05/28/19 00:44 Pulse Ox 95 05/28/19 00:44 - Orders/Labs/Meds Orders: Active Orders 24 hr Category Date Time Status CULTURE STOOL + CAMPY+SHIGATOX [RM] Stat Lab 05/28/19 00:56 Ordered CULTURE WOUND [RM] Stat Lab 05/28/19 02:32 Ordered CULTURE WOUND [RM] Stat Lab 05/28/19 02:34 Ordered Clostridium Difficile [CDIFF TOX A+B] [OP] Stat Lab 05/28/19 00:56 Ordered OCCULT BLOOD DIAGNOSTIC [OP] Stat Lab 05/28/19 00:56 Ordered OVA & PARASITES BY IMMUNOASSAY [MREF] Stat Lab 05/28/19 00:56 Ordered Isolation [COMM] Stat Oth 05/28/19 00:56 Ordered Labs: Laboratory Tests 05/28/19 05/28/19 05/28/19 Range/Units 01:30 01:30 01:30 WBC 5.87 (4.0-11.0) K/uL RBC 4.01 L (4.50-5.90) M/uL Hgb 12.7 L (13.0-17.0) g/dL Hct 38.7 (38.0-50.0) % MCV 96.5 (80.0-98.0) fL MCH 31.7 (27.0-32.0) pg MCHC 32.8 (31.0-37.0) g/dL RDW Std Deviation 45.9 (28.0-62.0) fl RDW Coeff of Janina 13 (11.0-15.0) % Plt Count 163 (150-400) K/uL MPV 10.60 (7.40-12.00) fL Neut % (Auto) 56.6 (48.0-80.0) % Lymph % (Auto) 31.3 (16.0-40.0) % [place] % (Auto) 11.8 (0.0-15.0) % Eos % (Auto) 0.0 (0.0-7.0) % Baso % (Auto) 0.3 (0.0-1.5) % Neut # (Auto) 3.3 (1.4-5.7) K/uL Lymph # (Auto) 1.8 (0.6-2.4) K/uL [place] # (Auto) 0.7 (0.0-0.8) K/uL Eos # (Auto) 0.0 (0.0-0.7) K/uL Baso # (Auto) 0.0 (0.0-0.1) K/uL Nucleated RBC % 0.0 /100WBC Nucleated RBCs # 0 K/uL Sodium 140 (136-148) mmol/L Potassium 4.3 (3.5-5.1) mmol/L Chloride 104 (98-107) mmol/L Carbon Dioxide 22.0 (21.0-32.0) mmol/L BUN 19 H (7.0-18.0) mg/dL Creatinine 1.1 (0.8-1.3) mg/dL Est Cr Clr Drug Dosing 109.63 mL/min Estimated GFR (MDRD) > 60.0 ml/min Glucose 105 (74-106) mg/dL Calcium 8.9 (8.5-10.1) mg/dL Total Bilirubin 0.2 (0.2-1.0) mg/dL AST 15 (15-37) IU/L ALT 16 (14-63) IU/L Alkaline Phosphatase 98 (46-116) U/L Total Protein 6.7 (6.4-8.2) g/dL Albumin 3.2 L (3.4-5.0) g/dL Globulin 3.5 (2.6-4.0) g/dL Albumin/Globulin Ratio 0.9 (0.9-1.6) Urine Color YELLOW Urine Appearance CLEAR Urine pH 6.5 (5.0-8.0) Ur Specific [place] 1.015 (1.001-1.035) Urine Protein NEGATIVE (NEGATIVE) mg/dL Urine Glucose (UA) NEGATIVE (NEGATIVE) mg/dL Urine Ketones TRACE H (NEGATIVE) mg/dL Urine Occult Blood NEGATIVE (NEGATIVE) Urine Nitrite NEGATIVE (NEGATIVE) Urine Bilirubin NEGATIVE (NEGATIVE) Urine Urobilinogen 0.2 (<2.0) EU/dL Ur Leukocyte Esterase NEGATIVE (NEGATIVE) Meds: Medications Discontinued Medications Generic Name Dose Route Start Last Admin Trade Name Yari PRN Reason Stop Dose Admin Sodium Chloride 1,000 mls @ 999 mls/hr 05/28/19 00:55 05/28/19 01:33 Normal Saline IV 05/28/19 01:55 999 mls/hr STAT ONE Administration Departure - Departure Time of Disposition: 03:08 Disposition: Home, Self-Care 01 Condition: Good Clinical Impression: Encounter for medical screening examination, Venous stasis dermatitis of both lower extremities - Discharge Information Referrals: Jason Sosa MD [Primary Care Provider] - Additional Instructions: Provide stool collection equipment to provide to primary care for testing Return if symptoms persist or worsen Medication as prescribed Continue current treatments as prescribed [facility] - Primary [facility] [address] [place] [id number] The following information is given to patients seen in the emergency department who are being discharged to home. This information is to outline your options for follow-up care. We provide all patients seen in our emergency department with a follow-up referral. The need for follow-up, as well as the timing and circumstances, are variable depending upon the specifics of your emergency department visit. If you don't have a primary care physician on staff, we will provide you with a referral. We always advise you to contact your personal physician following an emergency department visit to inform them of the circumstance of the visit and for follow-up with them and/or the need for any referrals to a consulting specialist. The emergency department will also refer you to a specialist when appropriate. This referral assures that you have the opportunity for follow-up care with a specialist. All of these measure are taken in an effort to provide you with optimal care, which includes your follow-up. Under all circumstances we always encourage you to contact your private physician who remains a resource for coordinating your care. When calling for follow-up care, please make the office aware that this follow-up is from your recent emergency room visit. If for any reason you are refused follow-up, please contact the [facility] emergency department at and asked to speak to the emergency department charge nurse. - My Orders Last 24 Hours: My Active Orders 05/28/19 00:56 CULTURE STOOL + CAMPY+SHIGATOX [RM] Stat Clostridium Difficile [CDIFF TOX A+B] [OP] Stat OCCULT BLOOD DIAGNOSTIC [OP] Stat OVA & PARASITES BY IMMUNOASSAY [MREF] Stat Isolation [COMM] Stat 05/28/19 02:32 CULTURE WOUND [RM] Stat 05/28/19 02:34 CULTURE WOUND [RM] Stat - Assessment/Plan Last 24 Hours: My Active Orders 05/28/19 00:56 CULTURE STOOL + CAMPY+SHIGATOX [RM] Stat Clostridium Difficile [CDIFF TOX A+B] [OP] Stat OCCULT BLOOD DIAGNOSTIC [OP] Stat OVA & PARASITES BY IMMUNOASSAY [MREF] Stat Isolation [COMM] Stat 05/28/19 02:32 CULTURE WOUND [RM] Stat 05/28/19 02:34 CULTURE WOUND [RM] Stat
[2019-05-28 03:54] VITALS: BP 128/75
== END 2019-05-28 03:25 | disposition home or self-care (01) ==
LOC: MW.ED 00:20
DX: I83.018 Varicose veins of right lower extremity with ulcer other part of lower leg (principal); I83.028 Varicose veins of left lower extremity with ulcer other part of lower leg; K52.9 Noninfective gastroenteritis and colitis, unspecified; E11.9 Type 2 diabetes mellitus without complications; E66.9 Obesity, unspecified; J45.909 Unspecified asthma, uncomplicated; I10 Essential (primary) hypertension; E78.00 Pure hypercholesterolemia, unspecified; Z79.899 Other long term (current) drug therapy; Z79.51 Long term (current) use of inhaled steroids; Z79.82 Long term (current) use of aspirin; Z79.84 Long term (current) use of oral hypoglycemic drugs; Z88.5 Allergy status to narcotic agent
CPT/HCPCS: 80053; 81003; 85025; 87070; 87077; 87186; 96360; 99284; J7040; 99283

== ENCOUNTER 2019-07-13 06:57 | Day surgery (SDC) | payer MEDICARE ==
[~2019-07-13 06:57] MED LIST changes: -Lidocaine 2% 5 ML SDV ONE; -Midazolam 1 MG/ML 2 ML SDV ONE; -Propofol 200 MG/20 ML SDV ONE
[2019-07-13] MEDS ORDERED: Lidocaine 2% 5 ML SDV ONE (07:58)
[2019-07-13] MEDS ORDERED: Propofol 200 MG/20 ML SDV ONE (07:58)
--- NOTE | 2019-07-13 08:22 | PCM.PREANE ---
Preanesthetic Assessment - Anesthesia/Transfusion/Family Hx Anesthesia History: Prior Anesthesia Without Reaction (EGD 1 yr ago) Family History of Anesthesia Reaction: No Transfusion History: No Prior Transfusion(s) - Physical Assessment NPO Status Date: 07/12/19 Vital Signs: Last Vital Signs Temp 97.7 F 07/13/19 07:46 Pulse 56 L 07/13/19 07:46 Resp 16 07/13/19 07:46 BP 114/60 07/13/19 07:46 Pulse Ox 99 07/13/19 07:46 Height: 6 ft 6 in Weight: 151.046 kg ASA Class: 3 Mental Status: Alert & Oriented x3 Airway Class: Mallampati = 2 Dentition: Reports: Edentulous ROM/Head Extension: Full Lungs: Clear to Auscultation, Normal Respiratory Effort Cardiovascular: Regular Rate, Regular Rhythm - Allergies Allergies/Adverse Reactions: Allergies Allergy/AdvReac Type Severity Reaction Status Date / Time codeine AdvReac Nose Bleeds Verified 07/09/19 11:45 - Blood Blood Available: No - Anesthesia Plan Pre-Op Medication Ordered: None - Acknowledgements Anesthesia Type Planned: General Anesthesia Pt an Appropriate Candidate for the Planned Anesthesia: Yes Alternatives and Risks of Anesthesia Discussed w Pt/Guardian: Yes Pt/Guardian Understands and Agrees with Anesthesia Plan: Yes Additional Comments: Anes prob list: DM2 on metformin and lisinipril, Asthma - on daily meds, denies recent exac, no recent ED visits for asthma, and no recent oral steroid use, Denies JEANNINE sx, denies him snoring or having apnic episodes, Seizure disorder- on tegretal, last seizure in 2007? Chart states hx of concussion TBI, Hx of DVT 3 yr ago. has stasis dermatitis of BLE with healing stasisi ulcer, GERD, PLAN: preoxigenation in pre op holding, tiva, airway as needed. PreAnesthesia Questionnaire HEENT History: Reports: Other (See Below) Other HEENT History: has upper and lower dentures, Cardiovascular History: Reports: Blood Clots/VTE/DVT, High Cholesterol, Hypertension Other Cardiovascular History: hx DVT to lower extremity Respiratory History: Reports: Asthma Gastrointestinal History: Reports: GERD, Helicobacter Pylori Genitourinary History: Reports: None Musculoskeletal History: Reports: None Neurological History: Reports: Brain Injury, Concussion, Seizure Other Neuro History: last seizure episode 1994 Psychiatric History: Reports: None Endocrine/Metabolic History: Reports: Diabetes, Type II, Obesity/BMI 30+ Hematologic History: Reports: Anemia Immunologic History: Reports: None Oncologic (Cancer) History: Reports: None Dermatologic History: Reports: Cellulitis, Venous Stasis Dermatitis, Other (See Below) Other Dermatologic History: poor circulation in his legs, (uses cream) - Infectious Disease History Infectious Disease History: Reports: Chicken Pox - Past Surgical History Head Surgeries/Procedures: Reports: None HEENT Surgical History: Reports: None Cardiovascular Surgical History: Reports: None Respiratory Surgical History: Reports: None GI Surgical History: Reports: EGD Male Surgical History: Reports: None Endocrine Surgical History: Reports: None Neurological Surgical History: Reports: None Musculoskeletal Surgical History: Reports: None Oncologic Surgical History: Reports: None Dermatological Surgical History: Reports: None - SUBSTANCE USE Smoking Status *Q: Never Smoker - HOME MEDS Home Medications: Home Meds Budesonide/Formoterol [Symbicort 160-4.5 MCG] 2 puff INH BID 03/26/14 [History] carBAMazepine [Tegretol XR] 200 mg PO TID 03/26/14 [History] Lisinopril 10 mg PO DAILY 06/13/17 [History] atorvaSTATin [Lipitor] 5 mg PO DAILY 06/13/17 [History] metFORMIN [Glucophage XR] 1,000 mg PO BIDMEALS 06/13/17 [History] Aspirin [Halfprin] 81 mg PO DAILY 06/02/18 [History] Albuterol [Ventolin HFA] 2 puff INH Q4H PRN #1 inhaler 06/03/18 [Rx] Ferrous Sulfate [Iron] 325 mg PO DAILY 07/09/19 [History] Pantoprazole Sodium [Protonix] 20 mg PO DAILY 07/09/19 [History] Silver Sulfadiazine [Silvadene 1% Cream 50 GM] 1 applic TOP ASDIRECTED PRN 07/09 [History] - CURRENT (IN HOUSE) MEDS Current Meds: Current Medications Lactated Ringer's (Ringers, Lactated) 1,000 mls @ 125 mls/hr IV ASDIRECTED SANDY Last Admin: 07/13/19 07:53 Dose: 125 mls/hr Discontinued Medications Lidocaine (Xylocaine-Mpf 2%) Confirm Administered Dose 5 ml .ROUTE .STK-MED ONE Stop: 07/13/19 07:59 Propofol (Diprivan 20 Ml) Confirm Administered Dose 400 mg .ROUTE .STK-MED ONE Stop: 07/13/19 07:59
--- NOTE | 2019-07-13 08:58 | PCM.OPNOTE ---
- General Post-Op/Procedure Note Date of Surgery/Procedure: 07/13/19 Findings: see dict [id number] Pre Op Diagnosis: hpylori infection and recurrent gerd Post-Op Diagnosis: Same Anesthesia Technique: Moderate Sedation Primary Surgeon: Alonso Figueroa Pathology: sent Complications: None Condition: Good
--- NOTE | 2019-07-13 09:14 | PCM.POSTAN ---
POST ANESTHESIA ASSESSMENT - MENTAL STATUS Mental Status: Alert, Oriented - VITAL SIGNS Vital Signs: Last Vital Signs Temp 36.5 C 07/13/19 07:46 Pulse 59 L 07/13/19 09:10 Resp 16 07/13/19 09:10 BP 101/59 L 07/13/19 09:10 Pulse Ox 98 07/13/19 09:10 - RESPIRATORY Respiratory Status: Respiratory Rate WNL, Airway Patent, O2 Saturation Stable - CARDIOVASCULAR CV Status: Pulse Rate WNL, Blood Pressure Stable - GASTROINTESTINAL GI Status: No Symptoms - POST OP HYDRATION Hydration Status: Adequate & Stable
[2019-07-13 09:40] VITALS: BP 107/52; PULSE 48
--- NOTE | 2019-07-13 09:58 | PCM48HPAN ---
Post Anesthesia Note - EVALUATION WITHIN 48HRS OF ANESTHETIC Vital Signs in Normal Range: Yes Patient Participated in Evaluation: Yes Respiratory Function Stable: Yes Airway Patent: Yes Cardiovascular Function Stable: Yes Hydration Status Stable: Yes Pain Control Satisfactory: Yes Nausea and Vomiting Control Satisfactory: Yes Mental Status Recovered: Yes Vital Signs: Last Vital Signs Temp 97.7 F 07/13/19 07:46 Pulse 48 L 07/13/19 09:30 Resp 14 07/13/19 09:30 BP 107/52 L 07/13/19 09:30 Pulse Ox 95 07/13/19 09:30
--- NOTE | 2019-07-13 11:22 | OR ---
SURGEON: Alonso Figueroa MD DATE OF PROCEDURE: 07/13/2019 PREOPERATIVE DIAGNOSES: Helicobacter pylori infection and gastroesophageal reflux disease. POSTOPERATIVE DIAGNOSES: Helicobacter pylori infection and gastroesophageal reflux disease. PROCEDURE PERFORMED: Esophagogastroduodenoscopy with biopsy. DESCRIPTION OF PROCEDURE: EGD: The patient was taken to the endoscopy room, and with the DOCUMENT ANALYST, Diprivan was administered. A well-lubricated EGD scope was gently inserted through the oropharynx, down the esophagus, passing through the gastroesophageal junction, into the stomach. The mucosa was examined upon the passage. Any etiology will be noted. Once in the stomach, we continued to advance to the distal antrum, passed through the pylorus into the second portion of the duodenum. Again, the mucosa was examined for any abnormality and etiology. The scope was then retrieved back to the stomach and then retroflexed to look at the fundus of the stomach. If a biopsy was indicated, we will biopsy the antrum, body, and gastroesophageal junction. The air will be sucked out while the scope is retrieved to reduce the patient's discomfort. The patient tolerated the procedure well. There were no intraoperative complications. Dr. Figueroa was present through the whole procedure. Prior to surgery, a time-out had been called, the patient identified, procedure identified and antibiotic administered. FINDINGS: 1. The patient is easily sedated with DOCUMENT ANALYST and Diprivan, the patient is soundly snoring. 2. The patient's oropharynx and proximal esophagus are free of disease. No stricture or inflammation. Distal esophagus at 40 shows moderate salmon- colored change consistent acid reflux and the previously observed flame- like structure resolved. Stomach rugae are normal in appearance. No blood, no ulcer, no food particle, no bile. Antrum is mildly inflamed and duodenum is grossly normal. Retroflexed look at the fundus of stomach, there is no hiatal hernia. Biopsy done at antrum, body, GE junction at 40 and sucked out the gas while scope pulling. DELANEY / MORALES /[id number]
== END 2019-07-13 09:47 | disposition home or self-care (01) ==
LOC: MW.SDS 06:57
PROVIDERS: ATTEND Surgery
DX: A04.8 Other specified bacterial intestinal infections (principal); K21.9 Gastro-esophageal reflux disease without esophagitis; K29.50 Unspecified chronic gastritis without bleeding; E11.9 Type 2 diabetes mellitus without complications; E66.9 Obesity, unspecified; E78.00 Pure hypercholesterolemia, unspecified; I10 Essential (primary) hypertension; J45.909 Unspecified asthma, uncomplicated; Z88.5 Allergy status to narcotic agent; Z79.82 Long term (current) use of aspirin; Z79.899 Other long term (current) drug therapy; Z79.2 Long term (current) use of antibiotics; Z68.38 Body mass index [BMI] 38.0-38.9, adult
CPT/HCPCS: 43239; J2001; J2704; J7120; 88305; 88312